=== PATIENT | female | born 1970 | race African-American/Black ===

== ENCOUNTER 2019-06-24 09:22 | Outpatient (CLI) | payer MEDICAID ==
[~2019-06-24] VITALS: Ht 152.4 cm; Wt 61.7 kg
[2019-06-24 09:55] VITALS: BP 137/81
[2019-06-24] MEDS ORDERED: AMLODIPINE BESY10 MG ORAL (13:35)
--- NOTE | 2019-06-26 02:15 | Consultation ---
DATE OF CONSULTATION: 06/24/2019 CONSULTING PHYSICIAN: Roger Mckay M.D. REFERRING PHYSICIAN: Dontae Webster M.D. CHIEF COMPLAINT: Abnormal liver function tests. HISTORY OF PRESENT ILLNESS: This is a very pleasant 49-year-old female who was referred to us by Dr. Webster for evaluation of her abnormal liver function tests. Apparently, the patient is on no new medication, no new change in diet, no anything [id number]. She is not exactly sure why her liver enzymes are going up. PAST MEDICAL HISTORY: Hypertension. PAST SURGICAL HISTORY: . MEDICATIONS: Amlodipine. FAMILY HISTORY: Mother had uterine cancer. SOCIAL HISTORY: The patient drinks socially. No IV drug abuse. No tobacco abuse. ALLERGIES: No known allergies. REVIEW OF SYSTEMS: Review of Systems was performed and there was no obvious symptoms. PHYSICAL EXAMINATION: VITAL SIGNS: Temperature 98.3, blood pressure 137/81, pulse 87, and respirations 20. HEENT: Normocephalic and atraumatic. Sclerae anicteric. NECK: Supple. No evidence of obvious lymphadenopathy. CARDIOVASCULAR: Regular rate and rhythm. Plus S1 and S2. No obvious murmur. LUNGS: Clear to auscultation bilaterally. ABDOMEN: Positive bowel sounds. Soft and nontender. No rebound. No guarding. No peritoneal sign. EXTREMITIES: No cyanosis. No clubbing. No edema. ASSESSMENT: The patient is a 49-year-old female with abnormal liver function tests. PLAN: I reviewed abdominal ultrasound which the patient brought showed no evidence of any fatty liver or any other finding. No gallstones. We ordered a bunch of the battery of blood work for evaluation of the abnormal liver function tests including hepatitis panel, celiac panel, iron panel, autoimmune panel. The patient to have these tests done and come back for further followup. I want to thank Dr. Webster for this kind referral. Roger Mckay M.D. DR: Rafael JOB#: [id number] CC: Dontae Webster M.D.
== END 2019-06-24 13:08 | disposition home or self-care (01) ==
LOC: PAN 09:22
DX: R94.5 Abnormal results of liver function studies (principal); Z79.899 Other long term (current) drug therapy; I10 Essential (primary) hypertension